=== PATIENT | male | born 1960 | race Caucasian/White ===

== ENCOUNTER 2024-08-24 06:17 | Day surgery (SDC) | payer BC, SELFPAY | END 2024-08-24 10:25 | disposition home or self-care (01) | LOC: GI 06:17 | PROVIDERS: ATTENDING PHYSICIAN Specialist | DX: Z12.11 Encounter for screening for malignant neoplasm of colon (principal); D12.3 Benign neoplasm of transverse colon; K20.90 Esophagitis, unspecified without bleeding; K31.89 Other diseases of stomach and duodenum; R10.11 Right upper quadrant pain; Z80.0 Family history of malignant neoplasm of digestive organs | CPT/HCPCS: 45385; 43239; 88305; 88342 ==

== ENCOUNTER → 2024-10-05 10:34 | Outpatient (REF) | payer BC, SELFPAY | LOC: HWRAD 10:34 | PROVIDERS: ATTENDING PHYSICIAN Specialist; FAMILY PHYSICIAN Family Medicine | DX: R10.11 Right upper quadrant pain (principal) | CPT/HCPCS: 76700 ==